=== PATIENT | female | born 1960 | race Caucasian/White ===

== ENCOUNTER → 2017-07-14 | Outpatient (CLI) | payer BC ==
[2017-07-14] VITALS (8 sets, daily range): BP systolic 88–114; BP diastolic 56–77; PULSE 65–71
[~2017-07-14] VITALS: Ht 162.6 cm; Wt 80.5 kg
[~2017-07-14] MED LIST: PRINZIDE 12.5 M1 TAB PO
[2017-07-14 07:58] LABS: INR 1.1 (0.8-3.0); PROTHROMBIN TIME 12.1 SECONDS (9.7-12.8)
== END ==
LOC: COL.RAD 07-07 09:00
PROVIDERS: Physician Assistant
DX: K74.60 Unspecified cirrhosis of liver (principal); R74.8 Abnormal levels of other serum enzymes; F10.21 Alcohol dependence, in remission
CPT/HCPCS: J2250; J3010